=== PATIENT | female | born 1940 | race African-American/Black ===

== ENCOUNTER 2017-12-27 12:50 | Emergency (ER) | payer OTHER, MEDICAID ==
[~2017-12-27] VITALS: Ht 167.6 cm; Wt 80.0 kg
[2017-12-27 13:30] LABS: BASOPHILS % 0.4 % (0.0-2.0); EOSINOPHILS % 0.1 % (0.0-5.0); HEMATOCRIT. 35.2 % (36.0-48.0); HEMOGLOBIN. 11.9 g/dL (12.0-16.0); LYMPHOCYTES % 9.8 % (20.0-50.0); MEAN CORPUSCULAR HEMOGLOBIN 32.1 pg (28.0-32.0); MEAN PLATELET VOLUME 9.4 fl (7.4-10.4); MONOCYTES % 11.9 % (2.0-8.0); NEUTROPHILS % 77.8 % (40.0-76.0); PLATELET 134 x1000/uL (130-400); RED BLOOD CELL COUNT 3.71 mill/uL (4.2-5.4); RED CELL DISTRIBUTION WIDTH 13.9 % (11.6-14.6)
[2017-12-27 13:36] LABS: CHLORIDE 98 mEq/L (98-107)
[2017-12-27] MEDS ORDERED: MORPHINE SULFATE 4 MG/ML CPJ (NOT FOR IM USE) IV ONE (15:15)
[2017-12-27] MEDS ORDERED: ONDANSETRON HCL 4MG/2ML VIAL IV ONE (15:15)
[2017-12-27] MEDS ORDERED: SODIUM CHLORIDE 0.9% 1,000 ML IV ONE (15:15)
[2017-12-27 16:12] VITALS: BP 172/89
[2017-12-27] MEDS ORDERED: KETOROLAC 30MG/ML VIAL IV ONE (18:30)
== END 2017-12-27 19:25 | disposition home or self-care (01) ==
LOC: ER 13:16
DX: B02.9 Zoster without complications (principal); G62.9 Polyneuropathy, unspecified; D72.819 Decreased white blood cell count, unspecified; I10 Essential (primary) hypertension; M19.90 Unspecified osteoarthritis, unspecified site
CPT/HCPCS: 36415; 80053; 85025; 96374; 96375; 99284; J1885; J2270; J2405; J7030